=== PATIENT | male | born 1990 | race Asian ===

== ENCOUNTER 2018-03-23 19:41 | Emergency (ER) | payer MEDICAID ==
[~2018-03-23] VITALS: Ht 180.3 cm; Wt 89.8 kg
--- NOTE | 2018-03-23 20:51 | Emergency Room Report ---
History of Present Illness General Chief Complaint: Earache Source: Patient, Family Member Present Illness HPI Patient presents with right ear pain for 2 days. He's had recurrent problems with his right ear in the past. He feels wax in there. He denies any fevers. He was unable to sleep last night due to pain. The pain is 9/10. Took Tylenol with little help. The pain doesn't radiate but when he touches the ear there's more pain. There's no change in hearing ALTHOUGH he feels the wax is there. He denies fevers, chills, headaches, sore throat, upper respiratory symptoms. No NVD, neck pain, rashes. Allergies: Coded Allergies: EGG (Verified Allergy, Unknown, 03/23/18) Patient History Past Medical History: see triage record Social History: Denies: smoking Social History Narrative with aunt Reviewed Nursing Documentation: PMH: Agreed; PSxH: Agreed Nursing Documentation-PMH Past Medical History: No Stated History Review of Systems Constitutional: Reports: see HPI ENT: Reports: see HPI Respiratory: Reports: see HPI Cardiovascular: Denies: chest pain Gastrointestinal: Denies: diarrhea, nausea, vomiting Skin: Denies: rash Neurological: Reports: see HPI Physical Exam Vital Signs Date Time Temp Pulse Resp B/P (MAP) Pulse Ox O2 Delivery O2 Flow Rate FiO2 03/23/18 20:18 98.4 77 18 147/97 98 Room Air 98.4 Sp02 EP Interpretation: reviewed, normal General Appearance: well appearing, no apparent distress Head: normocephalic, atraumatic Eyes: bilateral eye normal inspection, bilateral eye PERRL ENT: hearing grossly normal, normal pharynx, normal voice, other - TMs normal, some wax R, pinna tenderness, no edema, mastoid not tender Neck: full range of motion, supple Respiratory: no respiratory distress, speaking full sentences Cardiovascular #1: regular rate, rhythm Cardiovascular #2: 2+ radial (R) Gastrointestinal: normal inspection Musculoskeletal: digits/nails normal, gait/station normal, normal range of motion Neurologic: alert, oriented x3, normal gait, grossly normal Psychiatric: mood/affect normal Skin: no rash Medical Decision Making Diagnostic Impression: Primary Impression: Otitis externa Qualified Codes: H60.501 - Unspecified acute noninfective otitis externa, right ear Additional Impression: Excessive cerumen in right ear canal ER Course Patient presents with right ear pain. There is cerumen however it's not impacted. He has pinna tenderness and therefore the diagnosis is otitis externa. The mastoid is not tender. Antibiotics and analgesia are indicated. The patient is stable for outpatient observation and treatment. He will need to address the cerumen problem once the infection is taking care of. Discussed with patient. Last Vital Signs Date Time Temp Pulse Resp B/P (MAP) Pulse Ox O2 Delivery O2 Flow Rate FiO2 03/23/18 21:07 98.4 18 147/97 98 Room Air 209.1 03/23/18 21:05 74 Status: improved Disposition: HOME, SELF-CARE Condition: Improved Scripts Ibuprofen* (MOTRIN*) 600 Mg Tablet 600 MG ORAL Q6H PRN for For Pain, #20 TAB Prov: Evelio Hdz M.D. 03/23/18 Tramadol Hcl* (ULTRAM*) 50 Mg Tablet 50 MG ORAL Q6H PRN for For Pain, #10 TAB 0 Refills Prov: Evelio Hdz M.D. 03/23/18 Neomycin/Polymyxin B Sulf/Hc* (CORTISPORIN EAR SOLUTION*) 10 Ml Solution 4 DROP RIGHT EAR QID, #10 ML 0 Refills Prov: Evelio Hdz M.D. 03/23/18 Evelio Hdz M.D. Mar 23, 2018 20:51
[2018-03-23] MEDS ORDERED: TRAMADOL HCL50 MG ORAL (20:58)
[2018-03-23] MEDS ORDERED: IBUPROFEN600 MG ORAL (20:58)
[2018-03-23] MEDS ORDERED: CORTISPORIN EAR10 ML RIGHT EAR (20:58)
[2018-03-23 21:05] VITALS: BP 135/88
[2018-03-23 21:07] VITALS: BP 147/97
== END 2018-03-23 21:07 | disposition home or self-care (01) ==
LOC: EMR 20:56
DX: H60.501 Unspecified acute noninfective otitis externa, right ear (principal); Z91.012 Allergy to eggs
CPT/HCPCS: 99283